=== PATIENT | male | born 1990 | race Caucasian/White ===

== ENCOUNTER 2018-11-30 09:28 | Outpatient (CLI) | payer OTHER ==
[2018-11-30] MEDS ORDERED: GADOPENTETATE DIMEGLUMINE 15 ML VIAL IV ONE (10:54)
== END 2018-11-30 21:16 | disposition home or self-care (01) ==
LOC: SMI 09:28
DX: H91.93 Unspecified hearing loss, bilateral (principal)
CPT/HCPCS: 70553; A9579